=== PATIENT | male | born 1970 | race Caucasian/White ===

== ENCOUNTER 2018-03-19 19:59 | Emergency (ER) | payer SELFPAY ==
[~2018-03-19] VITALS: Ht 165.1 cm; Wt 74.8 kg
[2018-03-19 20:43] VITALS: Ht 165.1 cm; Wt 74.8 kg
[2018-03-19 21:43] VITALS: BP 129/74
== END 2018-03-19 21:43 | disposition other institution (70) ==
LOC: ED 19:59
DX: Z02.89 Encounter for other administrative examinations (principal)
CPT/HCPCS: 82962

== ENCOUNTER 2018-03-19 19:59 | Emergency (ER) | payer OTHER | END 2018-03-19 21:43 | disposition other institution (70) | LOC: ED 19:59 | DX: Z02.89 Encounter for other administrative examinations (principal) ==